=== PATIENT | female | born 1995 | race Caucasian/White ===

== ENCOUNTER 2021-03-05 22:29 | Emergency (ER) | payer OTHER, SELFPAY ==
--- NOTE | ~2021-03-05 | CT_ITS ---
EXAMINATION: CT abdomen pelvis w con DATE: 03/06/2021 02:03 INDICATION: Abdominal pain, nausea and vomiting. Diarrhea. TECHNIQUE: Computed tomography (CT) of the abdomen and pelvis was performed with 100 cc Omnipaque 350 intravenous contrast. The dose-length product was 209.87 mGy-cm. Automated exposure control and iter ative reconstruction technique were employed. COMPARISON: Limited abdominal ultrasound dated 04/19/2018. FINDINGS: Lung bases are unremarkable. Heart size is normal. No significant pleural or pericardial ef fusion. The liver, spleen, pancreas, adrenal glands and kidneys are unremarkable. Gallbladder is pres ent. There is hyperemic small bowel with air-fluid levels, suspicious for enteritis. Trace free fluid in the pelvis. No significant vascular abnormality. No lymphadenopathy. No free air. No acute osseou s abnormality. IMPRESSION: 1. Hyperemic small bowel containing air-fluid levels, suspicious for enteritis. Reviewed, dictated and finalized at location B. 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
[2021-03-05 22:53] VITALS: BP 129/78; PULSE 120; RESP 20; TEMP 36.9; O2SAT 99
[2021-03-06 01:11] VITALS: BP 123/85; PULSE 96; RESP 18; O2SAT 99
--- NOTE | 2021-03-06 01:17 | ED.GENADULT ---
HPI - General Adult General Chief complaint: Nausea/Vomiting/Diarrhea Stated complaint: n/v/d Time Seen by Provider: 03/06/21 01:08 History of Present Illness HPI narrative: Patient for 5-year-old female presents emerged part with chief. Patient states on Wednesday she started having multiple bouts of diarrhea reports that she started developing nausea and vomiting reports she is unable to keep fluids down has attempted to use Zofran that she had at home and feels as though she is still massively dehydrated the patient states that when she eats ice chips she will vomit that up in a short period of time after patient states her abdomen is cramping throughout and reports that she has pain in her back patient denies fever Related Data Home Medications Medication Instructions Recorded Confirmed dicyclomine 20 mg tablet 20 mg PO QID 02/28/19 metoprolol succinate 50 mg 50 mg PO DAILY 02/28/19 tablet,extended release 24 hr norethindrone 1 mg-ethinyl 1 tablet PO DAILY 02/28/19 estradiol 20 mcg (24)-iron 75 mg (4) tablet temazepam 15 mg capsule 15 mg PO ONCE 02/28/19 zolpidem 10 mg tablet 10 mg PO ONCE 02/28/19 Allergies Allergy/AdvReac Type Severity Reaction Status Date / Time Sulfa (Sulfonamide Allergy Unknown rash Verified 03/06/21 01:13 Antibiotics) [place] Allergy Unknown throat Uncoded 03/06/21 01:13 itch and face red Review of Systems Review of Systems: A 10 system review of systems was completed on the patient and is negative except for what is stated in the HPI. Nursing and ancillary documentation was reviewed. [facility] Past Medical History Medical History Chronic insomnia Hypothyroidism (acquired) IBS (irritable bowel syndrome) Non-celiac gluten sensitivity Sinus tachycardia Family History Family History Mother Family history of thyroid disease Other Diabetes mellitus Family history of cardiovascular disease Social History Social History Smoking status: Never smoker Second hand tobacco smoke exposure: No Alcohol intake: current Alcohol use details: socially Substance use: never Substance use type: does not use Gender identity (if verbalized by the patient): Female Exam Narrative: GENERAL: Well-appearing, well-nourished, and in no acute distress. HEAD: Normocephalic, atraumatic. EYES: PERRLA and EOMI. ENT: Nares clear, no rhinorrhea or epistaxis. Mucous membranes moist. NECK: Supple. CHEST: Clear to auscultation. No respiratory distress. HEART: Regular rate and rhythm. No murmur heard. Normal peripheral pulses. ABDOMEN: Soft, diffuse mild tenderness, nondistended, normal active bowel sounds. EXTREMITIES: Normal range of motion. No edema. SKIN: Warm, dry, no rash. NEURO: No focal deficits. Alert and oriented x3. PSYCH: Normal mood and affect. Course Vital Signs Vital signs: Vital Signs Temperature 36.9 C 03/05/21 22:53 Pulse Rate 120 H 03/05/21 22:53 Respiratory Rate 20 03/05/21 22:53 Blood Pressure 129/78 03/05/21 22:53 Pulse Oximetry 99 03/05/21 22:53 Temperature 36.9 C 03/05/21 22:53 Pulse Rate 104 H 03/06/21 03:43 Respiratory Rate 16 03/06/21 03:43 Blood Pressure 132/89 03/06/21 03:43 Pulse Oximetry 100 03/06/21 03:43 Medical Decision Making Vital Signs Vital Signs: Vital Signs Temperature 36.9 C 03/05/21 22:53 Pulse Rate 120 H 03/05/21 22:53 Respiratory Rate 20 03/05/21 22:53 Blood Pressure 129/78 03/05/21 22:53 Pulse Oximetry 99 03/05/21 22:53 Temperature 36.9 C 03/05/21 22:53 Pulse Rate 104 H 03/06/21 03:43 Respiratory Rate 16 03/06/21 03:43 Blood Pressure 132/89 03/06/21 03:43 Pulse Oximetry 100 03/06/21 03:43 Lab Data Result diagrams: 03/06/21 01:19
[2021-03-06 01:28] LABS: Basophils Percent Auto 0.2 % (0.2-1.2); Eosinophils Percent Auto 0.2 % (0-4.4); Hematocrit 33.7 % (37.0-47.0); Hemoglobin 10.5 g/dL (12.0-15.0); Immature Granulocyte Absolute 0.03 K/mm3 (0.00-0.031); Immature Granulocyte Percent A 0.6 % (0-0.5); Lymphocytes Percent Auto 24.6 % (18.3-44.2); Mean Corpuscular HGB Conc 31.2 g/dl (32-36); Mean Corpuscular Hemoglobin 25.5 pg (26-34); Mean Corpuscular Volume 81.8 fl (80-100); Mean Platelet Volume 10.8 fl (7.4-10.4); Monocytes Absolute Auto 0.5 K/mm3 (0.1-0.6); Monocytes Percent Auto 10.2 % (2.6-8.5); Neutrophils Absolute Auto 3.1 K/mm3 (1.3-6.7); Neutrophils Percent Auto 64.2 % (45.5-73.1); Platelet Count Result 222 k/mm3 (150-375); Red Blood Count 4.12 M/mm3 (4.2-5.4); Red Cell Distribution Width 15.1 % (11.5-14.5); White Blood Count 4.9 K/mm3 (4.5-10.0)
[2021-03-06 01:37] LABS: Add Urine Microscopic? YES; Appearance Urine Cloudy (Clear); Bacteria Urine Trace /hpf; Bilirubin Urine Negative (Negative); Blood Urine Negative (Negative); Color Urine Amber (Yellow); Glucose Urine UA Negative (Negative); Ketones Urine 2+ mg/dL (Negative); Leukocyte Esterase Ur Negative LEU/UL (Negative); Mucus Urine Heavy /lpf; Nitrate Urine Negative (Negative); Protein Urine 1+ mg/dL (Negative); Squamous Epithelial Cell Urine Moderate /hpf (Few); WBC Urine 0-3 /hpf
[2021-03-06 01:43] LABS: Alanine Aminotransferase 24 U/L (4-35); Albumin Level 4.1 g/dL (3.5-5.1); Alkaline Phosphatase 53 U/L (38-126); Anion Gap 12 mmol/L (8-16); Aspartate Amino Transferase 33 U/L (14-36); Bilirubin,Total 0.3 mg/dL (0.2-1.3); Blood Urea Nitrogen 14 mg/dL (7-17); Calcium 8.7 mg/dL (8.4-10.2); Carbon Dioxide 21 mmol/L (22-30); Chloride 105 mmol/L (98-107); Estimated CRCL calculation 111 ml/min; Estimated Glomerular Filt Rate > 60; Glucose 98 mg/dL (65-110); Lipase 83 U/L (23-300); Potassium 3.5 mmol/L (3.4-5.0); Sodium 138 mmol/L (137-145)
[2021-03-06 01:44] LABS: Specific Grav Ur 1.041 (1.001-1.035)
[2021-03-06] MEDS: PROCHLORPERAZINE EDISYLATE 10 MG/2 ML VIAL IV PUSH (01:46)
[2021-03-06] MEDS: diphenhydrAMINE HCl INJ 50 MG/ML VIAL IV PUSH (01:49)
[2021-03-06] MEDS: SODIUM CHLORIDE 0.9% IV 1,000 ML 999 ML IV CONT ×2 (01:49)
--- NOTE | 2021-03-06 01:50 | PC.NURSE ---
Pt to CT scan at this time.
[2021-03-06 03:43] VITALS: BP 132/89; PULSE 104; RESP 16; O2SAT 100
[2021-03-06 04:14] VITALS: BP 128/85; PULSE 106; RESP 16; O2SAT 96
== END 2021-03-06 04:17 | disposition home or self-care (01) ==
PROVIDERS: Emergency Provider Emergency Medicine; PCP Family Medicine
DX: K52.9 Noninfective gastroenteritis and colitis, unspecified (principal); E03.9 Hypothyroidism, unspecified; K58.9 Irritable bowel syndrome, unspecified; K90.41 Non-celiac gluten sensitivity
CPT/HCPCS: 36415; 74177; 80053; 81001; 81025; 83690; 85025; 96361; 96374; 96375; 99284; J0780; J1200; J7030; Q9967

== ENCOUNTER 2021-03-12 15:28 | Outpatient (CLI) | payer OTHER, SELFPAY ==
--- NOTE | ~2021-03-12 | US_ITS ---
EXAMINATION: US venous doppler UE RT DATE: 03/12/2021 16:39 INDICATION: Right upper extremity pain post IV injury TECHNIQUE: Grayscale ultrasound images without and with compression and Doppler ultrasound images of the right upper extremity veins were obtained. COMPARISON: None. FINDINGS: There is thrombosis of right cephalic vein. The right internal jugular vein, subclavian vein, axillar y vein, brachial veins, basilic vein, radial vein, and ulnar vein are patent. IMPRESSION: 1. Cephalic vein thrombosis. Reviewed, dictated and finalized at location A. TRUCTION IRONWORKER
== END 2021-03-12 15:29 | disposition home or self-care (01) ==
LOC: ANHIMG 15:33
PROVIDERS: PCP Family Medicine
DX: S49.81XA Other specified injuries of right shoulder and upper arm, initial encounter (principal); I82.611 Acute embolism and thrombosis of superficial veins of right upper extremity
CPT/HCPCS: 93971

== ENCOUNTER 2021-12-24 14:05 | Outpatient (CLI) | payer OTHER, SELFPAY ==
[2021-12-24 14:23] LABS: Basophils Percent Auto 0.3 % (0.2-1.2); Eosinophils Absolute Auto 0.1 K/mm3 (0-0.3); Eosinophils Percent Auto 0.9 % (0-4.4); Hematocrit 32.7 % (37.0-47.0); Hemoglobin 9.8 g/dL (12.0-15.0); Immature Granulocyte Absolute 0.02 K/mm3 (0.00-0.031); Immature Granulocyte Percent A 0.3 % (0-0.5); Lymphocytes Absolute Auto 1.99 K/mm3 (0.9-3.2); Lymphocytes Percent Auto 31.3 % (18.3-44.2); Mean Corpuscular Hemoglobin 23.8 pg (26-34); Mean Corpuscular Volume 79.6 fl (80-100); Mean Platelet Volume 10.5 fl (7.4-10.4); Monocytes Absolute Auto 0.5 K/mm3 (0.1-0.6); Monocytes Percent Auto 8.2 % (2.6-8.5); Neutrophils Absolute Auto 3.7 K/mm3 (1.3-6.7); Platelet Count Result 285 k/mm3 (150-375); Red Blood Count 4.11 M/mm3 (4.2-5.4); Red Cell Distribution Width 15.6 % (11.5-14.5); White Blood Count 6.4 K/mm3 (4.5-10.0)
[2021-12-24 14:50] LABS: Alanine Aminotransferase 13 U/L (6-35); Albumin Level 4.3 g/dL (3.5-5.1); Alkaline Phosphatase 52 U/L (38-126); Anion Gap 11 mmol/L (8-16); Aspartate Amino Transferase 20 U/L (14-36); Bilirubin,Total 0.2 mg/dL (0.2-1.3); Blood Urea Nitrogen 12 mg/dL (7-17); Calcium 8.6 mg/dL (8.4-10.2); Carbon Dioxide 24 mmol/L (22-30); Chloride 103 mmol/L (98-107); Estimated Glomerular Filt Rate > 60; Glucose 108 mg/dL (65-110); Potassium 3.7 mmol/L (3.4-5.0); Sodium 138 mmol/L (137-145)
[2021-12-24 15:55] LABS: Folic Acid 6.1 ng/mL (2.76->20)
[2021-12-24 16:33] LABS: Iron 19 ug/dL (37-170)
[2021-12-24 16:43] LABS: Percent Iron Saturation 4 % (20-50)
[2021-12-24 17:09] LABS: Ferritin 4.75 ng/mL (6.24-137)
== END 2021-12-24 14:06 | disposition home or self-care (01) ==
LOC: ANHLAB 14:06
PROVIDERS: PCP Family Medicine; Visit Provider Internal Medicine Hematology & Oncology
DX: D64.9 Anemia, unspecified (principal)
CPT/HCPCS: 36415; 80053; 82607; 82728; 82746; 83540; 83550; 85025

== ENCOUNTER 2022-01-07 16:29 | Emergency (ER) | payer OTHER, SELFPAY ==
--- NOTE | ~2022-01-07 | CT_ITS ---
EXAMINATION: CTA chest PE protocol DATE: 01/07/2022 22:41 INDICATION: d dimer 13, syncope, tachycardia TECHNIQUE: Computed tomography angiography (CTA) of the chest was performed with 100 mL Omnipaque-350 intravenous contrast timed to evaluate the pulmonary arteries. Coronal maximum intensity projection 3D-reconstructions were created by the technologist. The dose-length product (DLP) was 155.89 mGy-cm. Automated exposure control and iterative reconstruction technique were employed. COMPARISON: None. FINDINGS: Lung parenchyma and airways: Clear. Pleura: Unremarkable. Thoracic inlet, axillae and chest wall: Unremarkable. Thoracic aorta: Normal. Mediastinum: Normal. Heart and pericardium: Normal. Coronary artery calcifications: Absent. Upper abdomen: No significant finding. Bones: No acute osseous finding. Pulmonary arteries: Study quality: Mild beam hardening and quantum mottle, slightly delayed contrast phase, overall adequate. No pulmonary emboli detected. IMPRESSION: No CT evidence of acute pulmonary embolus. Reviewed, dictated and finalized at location K.
--- NOTE | 2022-01-07 16:55 | ECG_ITS ---
Measurements Intervals [place] Rate: 142 P: 66 CT: 134 QRS: 99 QRSD: 86 T: 60 QT: 340 QTc: 524 Interpretive Statements SINUS TACHYCARDIA INCOMPLETE RIGHT BUNDLE BRANCH BLOCK NONSPECIFIC T-WAVE ABNORMALITY ABNORMAL RHYTHM ECG NO PREVIOUS ECG AVAILABLE FOR COMPARISON Electronically Signed On 01-08-2022 17:07:25 CDT by Hakan Orellana M.D.
[2022-01-07 16:56] VITALS: BP 108/78; PULSE 140; RESP 16; TEMP 37; O2SAT 99
[2022-01-07 18:06] LABS: Basophils Percent Auto 0.3 % (0.2-1.2); Eosinophils Percent Auto 0.2 % (0-4.4); Hematocrit 37.9 % (37.0-47.0); Hemoglobin 11.6 g/dL (12.0-15.0); Immature Granulocyte Absolute 0.05 K/mm3 (0.00-0.031); Immature Granulocyte Percent A 0.4 % (0-0.5); Lymphocytes Absolute Auto 2.08 K/mm3 (0.9-3.2); Lymphocytes Percent Auto 17.7 % (18.3-44.2); Mean Corpuscular HGB Conc 30.6 g/dl (32-36); Mean Corpuscular Hemoglobin 23.9 pg (26-34); Mean Corpuscular Volume 78.1 fl (80-100); Mean Platelet Volume 10.3 fl (7.4-10.4); Monocytes Absolute Auto 0.7 K/mm3 (0.1-0.6); Monocytes Percent Auto 6.1 % (2.6-8.5); Neutrophils Absolute Auto 8.8 K/mm3 (1.3-6.7); Neutrophils Percent Auto 75.3 % (45.5-73.1); Platelet Count Result 424 k/mm3 (150-375); Red Blood Count 4.85 M/mm3 (4.2-5.4); Red Cell Distribution Width 15.5 % (11.5-14.5); White Blood Count 11.7 K/mm3 (4.5-10.0)
[2022-01-07 18:16] LABS: Alanine Aminotransferase 13 U/L (6-35); Albumin Level 3.9 g/dL (3.5-5.1); Alkaline Phosphatase 48 U/L (38-126); Anion Gap 9 mmol/L (8-16); Aspartate Amino Transferase 18 U/L (14-36); Bilirubin,Total 0.3 mg/dL (0.2-1.3); Blood Urea Nitrogen 9 mg/dL (7-17); Carbon Dioxide 21 mmol/L (22-30); Chloride 105 mmol/L (98-107); Estimated CRCL calculation 110 ml/min; Estimated Glomerular Filt Rate > 60; Glucose 111 mg/dL (65-110); Potassium 3.8 mmol/L (3.4-5.0); Sodium 135 mmol/L (137-145)
--- NOTE | 2022-01-07 19:54 | ED.SYNCOPE ---
HPI - Syncope General Chief Complaint: Syncope Stated Complaint: hypotension Time Seen by Provider: 01/07/22 19:49 Source: patient Mode of arrival: ambulatory Limitations: no limitations History of Present Illness HPI narrative: Patient is a 26 y/o female who presents to the ED with c/o syncope. Patient reports she received her first iron transfusion today which was ordered by Dr. Tejada. She states she received IV Benadryl as part of the protocol prior to receiving the transfusion. Patient has had a syncopal episode with receiving IV Benadryl in the past. She received a transfusion today without issues but in the 30 minutes observation period after, she developed tunnel vision, dizziness, lightheadedness, decreased hearing, shortness of breath and felt like she was going to pass out. She does think she fully lost consciousness. She notes her pulse was low at that time which is abnormal for her, usually runs in the 100s-120s. Patient states she feels fine currently. No further dizziness, lightheadedness, chest pain, SOB, abd pain, N/V, BREEN, vision changes. Patient notes a Hx of blood clot in RUE after IV placement. No DVT/PE. She is on estrogen therapy. Denies any recent long distance travel, pain or swelling in legs. Related Data Home Medications Medication Instructions Recorded Confirmed dicyclomine 20 mg tablet 20 mg PO QID 02/28/19 01/07/22 metoprolol succinate 50 mg 50 mg PO DAILY 02/28/19 01/07/22 tablet,extended release 24 hr norethindrone 1 mg-ethinyl 1 tablet PO DAILY 02/28/19 01/07/22 estradiol 20 mcg (24)-iron 75 mg (4) tablet (Phillip 24 Fe) temazepam 15 mg capsule 15 mg PO ONCE 02/28/19 01/07/22 zolpidem 10 mg tablet 10 mg PO ONCE 02/28/19 01/07/22 Allergies Allergy/AdvReac Type Severity Reaction Status Date / Time Sulfa (Sulfonamide Allergy Unknown rash Verified 03/06/21 01:13 Antibiotics) diphenhydramine Allergy Other Verified 01/07/22 21:04 [From Benadryl] [place] Allergy Unknown throat Uncoded 03/06/21 01:13 itch and face red Review of Systems Review of Systems: CONSTITUTIONAL: Denies fever, chills, or sweats. EYES: Reports tunnel vision. ENT: Reports decreased hearing. CARDIOVASCULAR: Denies chest pain. RESPIRATORY: Reports dyspnea. GASTROINTESTINAL: Denies abdominal pain, nausea, vomiting. NEUROLOGIC: Reports dizziness, lightheadedness, syncope. Denies headache, numbness, or weakness. All systems reviewed & are unremarkable except as noted in HPI and below PMFSH Past Medical History Medical History (Updated 01/08/22 @ 02:26 by Joaquina Marsh PA-C) Chronic insomnia Hypothyroidism (acquired) IBS (irritable bowel syndrome) Non-celiac gluten sensitivity Sinus tachycardia SLE (systemic lupus erythematosus) Surgical History Surgical History (Updated 01/07/22 @ 21:18 by Joaquina Marsh PA-C) No pertinent past surgical history Family History Family History Mother Family history of thyroid disease Other Diabetes mellitus Family history of cardiovascular disease Social History Social History Smoking status: Never smoker Second hand tobacco smoke exposure: No Alcohol intake: current Alcohol use details: socially Substance use: never Substance use type: does not use Gender identity (if verbalized by the patient): Female Spiritual care concerns: No Exam Narrative: GENERAL: Well appearing, well-nourished, non-toxic, in no acute distress. HEAD: Normocephalic, atraumatic. EYES: PERRL/EOMI, conjunctivae clear bilaterally. No nystagmus. NECK: Supple. No adenopathy, no masses. RESPIRATORY: Airway patent, respirations nonlabored. Clear to auscultation bilaterally, no rales, rhonchi, wheezing. CARDIOVASCULAR: Tachycardia w/ regular rhythm without murmurs, rubs, or gallops. Peripheral pulses 2+ and equal bilaterally.
[2022-01-07] MEDS: SODIUM CHLORIDE 0.9% IV 1,000 ML 999 ML IV CONT ×2 (21:05→23:07)
[2022-01-07 21:32] VITALS: BP 118/74; PULSE 105
[2022-01-07 21:33] VITALS: BP 126/90; PULSE 117
[2022-01-07 21:34] VITALS: BP 122/84; PULSE 118
[2022-01-07 21:56] LABS: Bacteria Urine Trace /hpf; Mucus Urine Rare /lpf; RBC Urine 0-2 /hpf (0-2); Squamous Epithelial Cell Urine Rare /hpf (Few); WBC Urine 0-3 /hpf
[2022-01-07 21:57] LABS: Appearance Urine Clear (Clear); Bilirubin Urine Negative (Negative); Blood Urine Trace-intact (Negative); Color Urine Yellow (Yellow); Glucose Urine UA Negative (Negative); Ketones Urine 4+ mg/dL (Negative); Leukocyte Esterase Ur Negative LEU/UL (Negative); Nitrate Urine Negative (Negative); Protein Urine Negative (Negative); Specific Grav Ur 1.015 (1.001-1.035); Urobilinogen Urine 0.2 mg/dL (<2.0); pH Urine 6.5 (5.0-9.0)
[2022-01-07 22:15] LABS: D Dimer 13.09 ug/mL (<0.48)
[2022-01-07 22:16] LABS: Add Urine Microscopic? YES
[2022-01-07 23:55] VITALS: BP 129/91; PULSE 99
[2022-01-08 00:04] VITALS: BP 126/94; PULSE 102
[2022-01-08 00:05] VITALS: BP 128/90; PULSE 109
== END 2022-01-08 00:38 | disposition home or self-care (01) ==
PROVIDERS: Emergency Medicine; Physician Assistant; Emergency Provider Emergency Medicine; PCP Family Medicine
DX: E86.0 Dehydration (principal); I95.1 Orthostatic hypotension; R79.1 Abnormal coagulation profile; M32.9 Systemic lupus erythematosus, unspecified; E03.9 Hypothyroidism, unspecified; K58.9 Irritable bowel syndrome, unspecified; K90.41 Non-celiac gluten sensitivity; R00.0 Tachycardia, unspecified; I45.10 Unspecified right bundle-branch block; R94.31 Abnormal electrocardiogram [ECG] [EKG]
CPT/HCPCS: 36415; 71275; 80053; 81001; 81025; 85025; 85380; 93005; 96360; 96361; 96365; 96366; 96375; 99284; A9270; J1200; J1756; J7030; J7050; Q9967

== ENCOUNTER → 2022-07-03 14:46 | Outpatient (CLI) | payer BC, SELFPAY ==
--- NOTE | ~2022-07-03 | US_ITS ---
EXAMINATION: US abdomen limited DATE: 07/03/2022 15:03 INDICATION: Abnormal liver function tests TECHNIQUE: Multiple grayscale and Doppler ultrasound images of the abdomen were obtained. COMPARISON: 04/19/2018 FINDINGS: The head and body of the pancreas are normal. The pancreatic tail is obscured by bowel gas. The liver is normal with normal echogenicity and echotexture. No surface nodularity. Normal hepatope mary flow in the main portal vein. The gallbladder is normal with no abnormal wall thickening, pericho lecystic fluid or stones. The normal common bile duct measures 2 mm. There was no sonographic Gayle sign. IMPRESSION: 1. Normal sonographic study of the gallbladder. Reviewed, dictated and finalized at location F.
== END ==
PROVIDERS: PCP Family Medicine; Visit Provider Family Medicine
DX: R94.5 Abnormal results of liver function studies (principal)
CPT/HCPCS: 76705

== ENCOUNTER 2023-07-23 00:14 | Day surgery (SDC) | payer BC, SELFPAY ==
[2023-07-19 10:56] VITALS: BMI 19.7
--- NOTE | 2023-07-19 11:00 | PC.NURSE ---
Report to the Outpatient Waiting Room, entrance under the green pavilion located off [facility], at time 1115 on date 07/23/23. Planned Procedure Time: 1315. Time changes happen often and if your time is changed the preop area will call you the afternoon before. - You and your visitor will be asked to self-screen and do not enter if you have any COVID symptoms. - A mask is optional within the hospital at this time. Patients may have clear liquids (water, carbonated beverages, clear teas, apple juice) until 3 hours prior to surgery with a maximum of 20 ounces. - No food from midnight until time of surgery Take the following medications with a SIP of water the morning of surgery: LEVOTHYROXINE, ESCITALOPRAM DO NOT STOP ANY OF YOUR OTHER PRESCRIPTION MEDICATIONS PRIOR TO SURGERY ?EXCEPT THE FOLLOWING Medications to discontinue per physician: N/A Date to take last dose: N/A Please no make-up, nail yoruba, hairspray, perfume, deodorant, or body powder the day of surgery. No jewelry (including any body piercings) or valuables the day of surgery, leave them at home. Please take a shower or bath the night before, or the morning of, surgery with an antibacterial soap. Wear comfortable, loose fitting clothing. - Jewelry must be removed prior to entering the operating room. Rings and piercings that are not removed may be cut off. - The hospital will not accept responsibility for valuables. - Please leave all valuables, including medications, at home the day of surgery. If you are going home after surgery, a licensed local combination truck driver must drive you home. - NO public transportation without another adult if you receive anesthesia. - We recommend that an adult stay with you for 24 hours following discharge. - We also recommend that you do not drive, make important decision, drink alcoholic beverages, or take any drugs that were not prescribed by your health care provider for at least 24 hours after your discharge time. Follow any additional instructions given to you from your surgeon. If you or anyone in your household have experienced Covid symptoms in the past week, please notify your surgeon or the nurse liaison at the phone number below for possible testing. Telephone instructions given to MINA MUSA and asked if any additional questions and then verbalized understanding. Patient advised to call surgeon office or pre surgery nurse liaison [phone] if any additional questions.
--- NOTE | 2023-07-19 11:04 | PC.NURSE ---
Pt currently has stomach bug causing N/V/D. Pt encouraged to call Dr. Melina Mancini's office if symptoms not improving prior to day of surgery. Pt verbalizes understanding.
--- NOTE | 2023-07-20 16:31 | PM.IMHP ---
H&P: HPI History of Present Illness Date/Time: 07/20/23 16:31 Chief Complaint: right ovarian cyst and pelvic pain Narrative: 27-year-old female admitted for laparoscopy with right cystectomy and diagnostic laparoscopy secondary to pelvic pain. She had a right ovarian cyst and this had chronic and severe pelvic pain. She will undergo diagnostic laparoscopy. Risks and benefits reviewed including min exclusive of , aspiration, bleeding, transfusion, perforation injury to bowel, bladder, ureters, or other internal organs with need for open laparotomy. Each she received the ACOG handout entitled laparoscopy. She had all questions answered. She asked to proceed. [facility] Past Medical History Medical History Chronic insomnia Hypothyroidism (acquired) IBS (irritable bowel syndrome) Non-celiac gluten sensitivity Sinus tachycardia SLE (systemic lupus erythematosus) Surgical History Surgical History No pertinent past surgical history Family History Family History Mother Family history of thyroid disease Other Diabetes mellitus Family history of cardiovascular disease Social History Social History Smoking status: Never smoker Second hand tobacco smoke exposure: No Alcohol intake: current Alcohol use details: 2/MONTH Substance use: never Substance use type: does not use Living arrangements: with family Occupation/Education: occupation Gender identity (if verbalized by the patient): Female Spiritual care concerns: No Meds Home Medications and Allergies Home Medications Medication Instructions Recorded Confirmed Type levothyroxine 50 mcg tablet 50 mcg PO DAILY #90 tabs 02/10/19 01/07/22 Rx dicyclomine 20 mg tablet 20 mg PO QID 02/28/19 01/07/22 History metoprolol succinate 50 mg 50 mg PO DAILY 02/28/19 01/07/22 History tablet,extended release 24 hr norethindrone 1 mg-ethinyl 1 tablet PO DAILY 02/28/19 01/07/22 History estradiol 20 mcg (24)-iron 75 mg (4) tablet (Phillip 24 Fe) temazepam 15 mg capsule 15 mg PO ONCE 02/28/19 01/07/22 History zolpidem 10 mg tablet 10 mg PO ONCE 02/28/19 01/07/22 History dicyclomine 20 mg tablet 20 mg PO QID PRN abdominal 03/06/21 01/07/22 Rx discomfort #20 tabs promethazine 25 mg tablet 25 mg PO TID PRN nausea and 03/06/21 01/07/22 Rx vomiting #15 tabs escitalopram oxalate 20 mg tablet 20 mg PO DAILY 07/19/23 07/19/23 History hydroxychloroquine 200 mg tablet 150 mg PO DAILY 07/19/23 07/19/23 History levothyroxine 75 mcg tablet 75 mcg PO DAILY 07/19/23 07/19/23 History Allergies Allergy/AdvReac Type Severity Reaction Status Date / Time Sulfa (Sulfonamide Allergy Unknown rash Verified 07/19/23 10:54 Antibiotics) diphenhydramine Allergy Other Verified 07/19/23 10:54 [From Benadryl] [place] Allergy Unknown throat Uncoded 07/19/23 10:54 itch and face red Exam Const: General: cooperative, healthy appearing, comfortable and average body habitus Orientation/consciousness: oriented to person, oriented to place and oriented to time HENMT: Head: normal to inspection Resp: Effort & Inspection: normal respiratory effort Cardio: Rate: regular rate Rhythm: regular rhythm Heart sounds: S1 normal heart sound present and S2 normal heart sound present GI: Inspection: normal to inspection Auscultation: normal bowel sounds : External Female Exam: normal external appearance Speculum Exam - Vagina: normal appearance of the vagina Speculum Exam - Cervix: normal appearance of the cervix Bimanual exam- vagina & uterus: non-tender Bimanual Exam- Adnexa, other: tender on the right Assessment and Plan Assessment and plan (1) Pelvic pain: Code(s): R10.2 - Pelvic and perineal pain Status: Acute (2) Right ovarian cyst: Code(s): N83.201 - Unspecified ovarian cyst, right side Status: Acute Plan laparoscopy with right ovarian cystectomy
[2023-07-23] VITALS (9 sets, daily range): BP systolic 104–121; BP diastolic 59–83; PULSE 92–125; RESP 14–16; TEMP 36.2–36.7; O2SAT 100
--- NOTE | 2023-07-23 06:44 | WPDHPUPDATE1 ---
History and Physical Update Update Date/Time: 07/23/23 06:44 History and Physical has been reviewed, including an updated exam of the patient. There are NO changes in the patient's condition. Risks, benefits, and alternatives have been discussed and questions answered. Patient agrees to proceed with procedure.
[2023-07-23] MEDS: LACTATED RINGERS 1,000 ML 30 ML IV CONT (11:15)
[2023-07-23] MEDS: ACETAMINOPHEN 500 MG TABLET 1000 MG PO (11:15)
[2023-07-23] MEDS: KETOROLAC 15 MG/ML VIAL (*BKC) IV PUSH (11:15)
--- NOTE | 2023-07-23 11:51 | P.PNAN_ITS ---
Anes - Initial Pre Proc Eval Procedure: Operation Date: 07/23/23 12:30 Proposed Procedures p Laparoscopic Right Ovarian Cystectomy - Real Mancini MD Date/Time: 07/23/23 11:51 Surgeon: Real Mancini MD Pre Op Diagnosis: right ovarian cyst,pelvic pain Patient Data Age: 27 Gender: F Height: 1.7 m Weight: 56 kg Last Vital Signs Temp 98.1 F 07/23/23 11:15 Pulse 125 H 07/23/23 11:15 Resp 16 07/23/23 11:15 BP 121/83 07/23/23 11:15 Pulse Ox 100 07/23/23 11:15 O2 Del Method Room Air 07/23/23 11:15 Allergies Allergy/AdvReac Type Severity Reaction Status Date / Time Sulfa (Sulfonamide Allergy Unknown rash Verified 07/23/23 11:22 Antibiotics) diphenhydramine Allergy Other Verified 07/23/23 11:22 [From Benadryl] [place] Allergy Unknown throat Uncoded 07/23/23 11:22 itch and face red Home Medications Medication Instructions Recorded Confirmed Type levothyroxine 50 mcg tablet 50 mcg PO DAILY #90 tabs 02/10/19 01/07/22 Rx dicyclomine 20 mg tablet 20 mg PO QID 02/28/19 01/07/22 History metoprolol succinate 50 mg 50 mg PO DAILY 02/28/19 01/07/22 History tablet,extended release 24 hr norethindrone 1 mg-ethinyl 1 tablet PO DAILY 02/28/19 01/07/22 History estradiol 20 mcg (24)-iron 75 mg (4) tablet (Phillip 24 Fe) temazepam 15 mg capsule 15 mg PO ONCE 02/28/19 01/07/22 History zolpidem 10 mg tablet 10 mg PO ONCE 02/28/19 01/07/22 History dicyclomine 20 mg tablet 20 mg PO QID PRN abdominal 03/06/21 01/07/22 Rx discomfort #20 tabs promethazine 25 mg tablet 25 mg PO TID PRN nausea and 03/06/21 01/07/22 Rx vomiting #15 tabs escitalopram oxalate 20 mg tablet 20 mg PO DAILY 07/19/23 07/23/23 History hydroxychloroquine 200 mg tablet 150 mg PO DAILY 07/19/23 07/19/23 History levothyroxine 75 mcg tablet 75 mcg PO DAILY 07/19/23 07/23/23 History hydrocodone 5 mg-acetaminophen 325 1 tablet PO Q4H PRN pain #20 tabs 07/23/23 Rx mg tablet Patient hx anesthesia problems: none Family hx anesthesia problems: none Results Review: All pre-operative results and documents have been reviewed as part of the pre-operative evaluation. [facility] Past Medical History Medical History Chronic insomnia Hypothyroidism (acquired) IBS (irritable bowel syndrome) Non-celiac gluten sensitivity Sinus tachycardia SLE (systemic lupus erythematosus) Surgical History Surgical History No pertinent past surgical history Family History Family History Mother Family history of thyroid disease Other Diabetes mellitus Family history of cardiovascular disease Social History Social History Smoking status: Never smoker Second hand tobacco smoke exposure: No Alcohol intake: current Alcohol use details: 2/MONTH Substance use: never Substance use type: does not use Living arrangements: with family Occupation/Education: occupation Gender identity (if verbalized by the patient): Female Spiritual care concerns: No Anes - Eval Final PreProcedure Day of Procedure 07/23/23 11:51 Patient weight: normal Heart: regular rate and rhythm and tachycardia Lungs: clear to auscultation Airway: Mallampati scale class 1 Neurological: alert and oriented Last oral intake: >/= 8 hours ASA classification: II Emergent: no Anesthetic plan: proceed Anesthesia type and monitoring: general and standard monitoring Results Review: All pre-operative results and documents have been reviewed as part of the pre- operative evaluation. Baseline tachycardia for pt, on chronic b binu. Hypothyroidism, well controlled. Informed Consent: The patient's anesthetic plan and its attendant risks and benefits were discussed with the patient/family/POA. Questions were solicited and answers provided to the satisfaction of the patient/family/POA.
--- NOTE | 2023-07-23 13:48 | P.OP_ITS ---
Procedure Note - Detailed Date of Procedure 07/23/23 Pre-op Diagnosis right ovarian cyst,pelvic pain Post-op Diagnosis Other (Pelvic pain/ endometriosis) Procedure Performed laparoscopic destruction of endometriosis Surgeon Real Mancini MD Anesthesia General Indications a 27-year-old female with right-sided pelvic pain Findings normal-appearing ovaries tubes and uterus. Endometriosis along the right uterosacral ligament Description of Procedure patient was prepped and draped in the normal sterile fashion placed in the dorsal lithotomy position under excellent general trach anesthesia weighted spe culum placed in posterior fornix vagina. Anterior lip of the cervix grasped with single-tooth tenaculum. Medina's cannula inserted the cervix and attached to the single-tooth to be used later for utilization. Bladder was emptied of clear urine. The weighted speculum was removed the gloves were changed. An infraumbilical incision made the Veress needle passed in the abdomen. Abdomen filled with CO2 gas [id number]. The 5mm trocar advanced under direct visualization assuring no injury. Patient placed in Trendelenburg and a suprapubic incision made. 5mm trocar advanced under direct visualization assuring no injury. The above findings were noted in photo documentation was undertaken the liver gallbladder and appendix all appeared within normal limits ovaries and tubes appeared within normal limits in the previous seen ovarian cyst on ultrasound had decreased essentially nothing. Endometriosis was seen in the form of powder burn along the right uterosacral ligament. Using the monopolar cautery needle point of this was cauterized at 35 w per 2nd destroying all the irregular spaces. Irrigation undertaken to clear the instruments withdrawn the patient was awakened. The coapt the trocars removed after gas removed from the abdomen the incisions closed with 4 Monocryl glue blood loss estimated 5cc all sponge, needle, instrument counts were correct Estimated Blood Loss 5 Drains No Packing No Pathology None sent Complications No immediate complications Condition Stable Disposition PACU
[2023-07-23] MEDS: oxyCODONE HCL (*CRX) 5 MG TAB IR PO (15:04)
== END 2023-07-23 15:42 | disposition home or self-care (01) ==
PROVIDERS: PCP Internal Medicine; Visit Provider Obstetrics & Gynecology
PROC: (CPT 49320; principal; 2023-07-23 12:30)
DX: N80.3C1 Endometriosis of the right uterosacral ligament, unspecified depth (principal); E03.9 Hypothyroidism, unspecified; M32.9 Systemic lupus erythematosus, unspecified; F51.04 Psychophysiologic insomnia
CPT/HCPCS: 58662; 36415; 86850; 86900; 86901; A9270; J0330; J1100; J1885; J2250; J2704; J3010; J7120